=== PATIENT | female | born 1990 | race African-American/Black ===

== ENCOUNTER 2021-03-12 18:46 | Emergency (ER) | payer OTHER ==
[~2021-03-12] VITALS: Ht 160 cm; Wt 79.5 kg
[~2021-03-12 18:46] MED LIST: CEPH500C PO; DOCU-109 PO; IBUP-1060 PO; Ibuprofen PO; ONDA4TAB10 SL; ONDA4TAB7 PO; OXYC1TAB15 PO; Oxycodone Hcl/Acetaminophen PO; PNV1TABL25 PO; PREN1TAB58 PO; PROM25SU32 PO
[2021-03-12 20:00] LABS: BASO # 0.1 x10^3/uL (0.0-0.2); BASO % 1 % (0-3); EOS # 0.2 x10^3/uL (0.0-0.7); EOS % 1 % (0-3); HEMATOCRIT 38.6 % (36.0-47.0); HEMOGLOBIN 12.6 g/dL (12.0-15.5); LYMPH % 15 % (24-48); MEAN CORPUSCULAR HEMOGLOBIN 28 pg (25-35); MEAN CORPUSCULAR HGB CONC 33 g/dL (31-37); MEAN CORPUSCULAR VOLUME 87 fL (79-100); MONO # 0.6 x10^3/uL (0.0-1.1); MONO % 4 % (0-9); NEUT % 78 % (31-73); PLATELET COUNT 286 x10^3/uL (140-400); RED BLOOD COUNT 4.44 x10^6/uL (3.50-5.40); RED CELL DISTRIBUTION WIDTH 16.1 % (11.5-14.5); WHITE BLOOD COUNT 12.8 x10^3/uL (4.0-11.0)
[2021-03-12] MEDS ORDERED: IV NORMAL SALINE 1000ML BAG 1,000 ML IV ONE (20:00)
[2021-03-12] MEDS ORDERED: ONDANSETRON PF 4 MG/2 ML VIAL. IV ONE (20:00)
[2021-03-12] MEDS ORDERED: ACETAMINOPHEN 500 MG TABLET PO ONE (20:00)
[2021-03-12 20:09] LABS: BILIRUBIN,URINE NEGATIVE (NEG); CLARITY,URINE CLEAR; COLOR,URINE YELLOW; NITRITE,URINE NEGATIVE (NEG); PH,URINE 6.5 (<5.0-8.0); PROTEIN,URINE NEGATIVE (NEG-TRACE)
[2021-03-12 20:13] LABS: CALCIUM 9.3 mg/dL (8.5-10.1); CREATININE 0.8 mg/dL (0.6-1.0); GFR 103.3; POTASSIUM 3.8 mmol/L (3.5-5.1)
[2021-03-12 20:14] LABS: PREG TEST PT QUAL NEGATIVE (NEG)
[2021-03-12 20:15] LABS: BACTERIA,URINE FEW /HPF (0-FEW); RBC,URINE RARE /HPF (0-2); WBC,URINE 0 /HPF (0-4)
[2021-03-12 20:16] LABS: ALBUMIN 3.6 g/dL (3.4-5.0); ALBUMIN/GLOBULIN RATIO 0.9 (1.0-1.7); MAGNESIUM 1.9 mg/dL (1.8-2.4); TOTAL BILIRUBIN 0.4 mg/dL (0.2-1.0); TOTAL PROTEIN 7.6 g/dL (6.4-8.2)
--- NOTE | 2021-03-12 21:16 | RAD ---
Chest AP portable at 2045: Reason for examination: Chest pain. The heart size is normal. Mediastinum is unremarkable. Lung marsh are clear. No acute bony abnormali ties are seen. Impression: No acute cardiopulmonary disease. Electronically signed by: Pura Vigil MD (03/12/2021 9:13 PM) AV
[2021-03-12 21:31] VITALS: BP 131/77
--- NOTE | 2021-03-12 21:44 | ED.ADGEN ---
Past Medical History Past Medical History: Hypertension Additional Past Medical Histor: Family history of heart disease prior to the age of 50 Past Surgical History: (X3) Smoking Status: Never Smoker Alcohol Use: None General Adult EDM: Chief Complaint: HYPERTENSION HPI: HPI: Patient is a 30 year old female who presents emergency department with complaints of headache and dizziness that began approximately 2 hours after taking her increased dose of nifedipine. Patient states her primary care doctor increased her dose of blood pressure medication this past week. She states that since she has been taking the increased dose about 2 hours after she takes it she has started to feel funny. Today when she noticed she was not feeling right she became worried and noticed that she was breathing fast and she felt like the left side of her body was numb followed by intermittent sharp substernal chest pain and a diffuse headache. Patient denies any nausea, vomiting, photosensitivity, or visual disturbances. She states that this headache feels like a throbbing sensation. Patient reports feeling nauseated with the symptoms but denies any vomiting, diarrhea, or abdominal pain. At the time of my HPI she denies any complaints other than her headache that she rates a 9 out of 10 on the pain scale, she stated that she is no longer having the chest pain. Patient denies any alleviating factors. Review of Systems: Review of Systems: Complete ROS is negative unless otherwise noted in HPI. Current Medications: Current Medications Medications (Trade) Dose Ordered Sig/[facility] Start Time Stop Time Status Last Admin Dose Admin Acetaminophen (Tylenol) 1,000 mg 1X ONCE 03/12/21 20:00 03/12/21 20:01 DC 03/12/21 19:56 1,000 MG Ondansetron HCl (Zofran) 4 mg 1X ONCE 03/12/21 20:00 03/12/21 20:01 DC 03/12/21 19:56 4 MG Sodium Chloride 1,000 ml @ 1,000 mls/hr 1X ONCE 03/12/21 20:00 03/12/21 20:59 DC 03/12/21 19:54 1,000 MLS/HR Allergies: Allergies: Allergies Coded Allergies Type Severity Reaction Last Updated Verified No Known Drug Allergies 02/05/20 No Physical Exam: PE: See Above Constitutional: Well developed, well nourished, no acute distress, non-toxic appearance, anxious. [] HENT: Normocephalic, atraumatic, bilateral external ears normal, nose normal. [] Eyes: PERRLA, EOMI, conjunctiva normal, no discharge. [] Neck: Normal range of motion, no stridor. [] Cardiovascular:Heart rate regular rhythm Lungs & Thorax: Respirations even and unlabored, no retractions, no respiratory distress, lungs CTA Abdomen: soft, no tenderness, no palpable mass Skin: Warm, dry, no erythema, no rash. [] Extremities: No cyanosis, ROM intact, no edema. [] Neurologic: Alert and oriented X 3, normal motor, normal sensory, no focal deficits noted. [] Psychologic: Affect normal, judgement normal, mood anxious Current Patient Data: Labs: Laboratory Tests Test 03/12/21 19:52 03/12/21 20:00 03/12/21 20:04 White Blood Count 12.8 x10^3/uL (4.0-11.0) H Red Blood Count 4.44 x10^6/uL (3.50-5.40) Hemoglobin 12.6 g/dL (12.0-15.5) Hematocrit 38.6 % (36.0-47.0) Mean Corpuscular Volume 87 fL (79-100) Mean Corpuscular Hemoglobin 28 pg (25-35) Mean Corpuscular Hemoglobin Concent 33 g/dL (31-37) Red Cell Distribution Width 16.1 % (11.5-14.5) H Platelet Count 286 x10^3/uL (140-400) Neutrophils (%) (Auto) 78 % (31-73) H Lymphocytes (%) (Auto) 15 % (24-48) L Monocytes (%) (Auto) 4 % (0-9) Eosinophils (%) (Auto) 1 % (0-3) Basophils (%) (Auto) 1 % (0-3) Neutrophils # (Auto) 10.0 x10^3/uL (1.8-7.7) H Lymphocytes # (Auto) 2.0 x10^3/uL (1.0-4.8) Monocytes # (Auto) 0.6 x10^3/uL (0.0-1.1) Eosinophils # (Auto) 0.2 x10^3/uL (0.0-0.7) Basophils # (Auto) 0.1 x10^3/uL (0.0-0.2) Sodium Level 139 mmol/L (136-145) Potassium Level 3.8 mmol/L (3.5-5.1) Chloride Level 103 mmol/L (98-107) Carbon Dioxide Level 29 mmol/L (21-32) Anion Gap 7 (6-14) Blood Urea Nitrogen 10 mg/dL (7-20) Creatinine 0.8 mg/dL (0.6-1.0) Estimated GFR (Cockcroft-Gault) 103.3 BUN/Creatinine Ratio 13 (6-20) Glucose Level 105 mg/dL (70-99) H Calcium Level 9.3 mg/dL (8.5-10.1) Magnesium Level 1.9 mg/dL (1.8-2.4) Total Bilirubin 0.4 mg/dL (0.2-1.0) Aspartate Amino Transferase (AST) 27 U/L (15-37) Alanine Aminotransferase (ALT) 43 U/L (14-59) Alkaline Phosphatase 102 U/L (46-116) Creatine Kinase 105 U/L (26-192) Creatine Kinase MB (Mass) 1.0 ng/mL (0.0-3.6) Creatine Kinase MB Relative Index 1.0 % (0-4) Troponin I Quantitative < 0.017 ng/mL (0.000-0.055) Total Protein 7.6 g/dL (6.4-8.2) Albumin 3.6 g/dL (3.4-5.0) Albumin/Globulin Ratio 0.9 (1.0-1.7) L Lipase 74 U/L (73-393) Serum Test, Qualitative Negative (NEG) Urine Collection Type Unknown Urine Color Yellow Urine Clarity Clear Urine pH 6.5 (<5.0-8.0) Urine Specific [place] 1.015 (1.000-1.030) Urine Protein Negative mg/dL (NEG-TRACE) Urine Glucose (UA) Negative mg/dL (NEG) Urine Ketones (Stick) Negative mg/dL (NEG) Urine Blood Negative (NEG) Urine Nitrite Negative (NEG) Urine Bilirubin Negative (NEG) Urine Urobilinogen Dipstick 1.0 mg/dL (0.2 mg/dL) Urine Leukocyte Esterase Negative (NEG) Urine RBC Rare /HPF (0-2) Urine WBC 0 /HPF (0-4) Urine Squamous Epithelial Cells Many /LPF Urine Bacteria Few /HPF (0-FEW) POC Urine HCG, Qualitative Hcg negative (Negative) Laboratory Tests 03/12/21 19:52 Laboratory Tests 03/12/21 19:52 Vital Signs: Vital Signs Date Time Temp Pulse Resp B/P (MAP) Pulse Ox O2 Delivery O2 Flow Rate FiO2 03/12/21 21:31 92 24 131/77 (95) 94 Room Air 03/12/21 19:02 99.5 99.5 EKG: EK-sinus rhythm, normal EKG, rate 100 otherwise no acute changes, no STEMI, read by Dr. Sanchez [] Heart Score: C/O Chest Pain: Yes HEART Score for Chest Pain: HEART Score for Chest Pain Response (Comments) Value History Slighlty/Non-Suspicious 0 ECG Normal 0 Age < 45 0 Risk Factors >3 Risk Factors or Hx CAD 2 Troponin < Normal Limit 0 Total 2 Risk Factors: Risk Factors: HTN, HLP, family history of CAD, obesity. Risk Scores: Score 0 - 3: 2.5% MACE over next 6 weeks - Discharge Home Score 4 - 6: 20.3% MACE over next 6 weeks - Admit for Clinical Observation Score 7 - 10: 72.7% MACE over next 6 weeks - Early Invasive Strategies Radiology/Procedures: Radiology/Procedures: PROCEDURE: CHEST AP ONLY Chest AP portable at 2045: Reason for examination: Chest pain. The heart size is normal. Mediastinum is unremarkable. Lung marsh are clear. No acute bony abnormalities are seen. Impression: No acute cardiopulmonary disease. [] Course & Med Decision Making: Course & Med Decision Making Pertinent Labs and Imaging studies reviewed. (See chart for details) 30-year-old female presents emergency department with concerns of headache, chest pain, and dizziness that began about 2 hours after taking increased dose of her blood pressure medication. Patient reported she had been taking a smaller dose of medication for over 3 years. Her doctor recently increased it and since she has been taking the increased dose she has been experiencing similar episodes about 2 hours after taking the medication. EKG revealed no acute changes, chest x-ray was unremarkable. CBC is unremarkable; CMP reveals a glucose of 105 otherwise unremarkable CK and troponin were negative, UA is unremarkable, patient is not . Patient's vital signs are stable throughout emergency department visit. She received a liter of normal saline and 4 mg of Zofran. Patient was given a gram of Tylenol. She reported relief o f her headache and stated she was feeling better. Advised the patient to continue taking the blood pressure medication as her symptoms are not an allergic reaction although more of an adverse effect of the medication. Patient was instructed to call her doctor the morning return to the ER symptoms worsen. Patient verbalized an understanding of home care, medications, follow-up, and return to ED instructions and was in agreement with the plan of care. [] Dragon Disclaimer: Dragon Disclaimer: This electronic medical record was generated, in whole or in part, using a voice recognition dictation system. Departure Departure Impression: Primary Impression: Medication side effect Additional Impression: Anxiety about health Disposition: 01 HOME / SELF CARE / HOMELESS Condition: STABLE Referrals: FELICITA BEAR MD (PCP) Patient Instructions: Anxiety and Panic Attacks, [id number], Nifedipine capsules Additional Instructions: The symptoms are experiencing are likely a side effect of the increased dosage of your blood pressure medication. Your labs, chest x-ray, and EKG today were unremarkable. Call your doctor in the morning to advise of your symptoms. Return to the ER if symptoms worsen or fever develops. Problem Qualifiers GEMMA OSPINA APRN Mar 12, 2021 21:44
--- NOTE | 2021-03-13 06:52 | EKG ---
[address] [place] [id number] Test Date: 2021-03-12 Test Time: 19:10:31 Pat Name: POORNIMA DANIELS Department: Room: Gender: F Acds Block 1 Operator: : 1990 Requested By: GEMMA OSPINA Order Number: [id number] Reading MD: Measurements Intervals [place] Rate: 100 P: 38 IN: 142 QRS: 10 QRSD: 78 T: 26 QT: 332 QTc: 431 Interpretive Statements SINUS RHYTHM NORMAL ECG RI6.02 No previous ECG available for comparison
== END 2021-03-12 21:53 | disposition home or self-care (01) ==
LOC: ER 18:46
DX: F41.9 Anxiety disorder, unspecified (principal); T46.1X5A Adverse effect of calcium-channel blockers, initial encounter; I11.9 Hypertensive heart disease without heart failure; R07.89 Other chest pain; R51.9 Headache, unspecified; R42 Dizziness and giddiness; Y92.89 Other specified places as the place of occurrence of the external cause
CPT/HCPCS: 36415; 71045; 80053; 81001; 81025; 82553; 83690; 83735; 84484; 84703; 85025; 93005; 96361; 96374; 99285; J2405; J7030